=== PATIENT | female | born 1960 | race Caucasian/White ===

== ENCOUNTER → 2019-03-16 | Day surgery (SDC) | payer OTHER ==
[2019-03-14 12:36] LABS: BASOPHILS # (AUTO) 0.1 (0.0-0.1); BASOPHILS % 0.8 % (0.0-1.0); EOSINOPHILS # (AUTO) 0.2 (0.0-0.4); EOSINOPHILS % 3.3 % (0.0-6.0); HEMATOCRIT 36.2 % (34.2-44.1); HEMOGLOBIN 11.2 g/dL (12.0-16.0); LYMPHOCYTES # (AUTO) 2.8 (1.0-3.2); LYMPHOCYTES % 44.3 % (18.0-39.1); MEAN CORPUSCULAR HEMOGLOBIN 27.8 pg (28-32); MEAN CORPUSCULAR HGB CONC 30.9 g/dL (31-35); MEAN CORPUSCULAR VOLUME 89.8 fL (81-99); MONOCYTES # (AUTO) 0.8 (0.2-0.8); MONOCYTES % 13.1 % (4.4-11.3); NEUTROPHILS # (AUTO) 2.4 (2.1-6.9); NEUTROPHILS % 38.3 % (38.7-80.0); PLATELET COUNT 274 x10e3/uL (140-360); RED BLOOD COUNT 4.03 x10e6/uL (3.6-5.1); RED CELL DISTRIBUTION WIDTH 13.9 % (11.7-14.4)
[2019-03-14 12:39] LABS: INR 0.93; PARTIAL THROMBOPLASTIN TIME 33.7 seconds (23.8-35.5)
[~2019-03-16] MED LIST: BREO PO; FENTANYL CITRATE/PF 100MCG/2 ML INJ ONE; HYOSCYAMINE 0.125 MG TAB ONE; LIDOCAINE HCL 2% LOCAL INJ 5 ML SDV VIAL INJ ONE; PROMETHAZINE HCL (IM) 25 MG/ML VIAL ONE; PROPOFOL IV EMULSION 10 MG/ML 50 ML VIAL ONE
--- OUTSIDE RECORDS SUMMARY | 2019-03-16 13:04 | XMS REPORT ---
Author Author [facility] Address Unknown Phone Unavailable Care Team Providers Care Positive Printer Operator Name Role Phone Unavailable Unavailable Payers Payer Name Policy Type Policy Number Effective Date Expiration Date Problems This patient has no known problems. Allergies, Adverse Reactions, Alerts Allergy Name Allergy Type Status Severity Reaction(s) Onset Date Inactive Date Treating Clinician Comments No Known Allergies DA Active U 2018-07-24 00:00:00 Medications This patient has no known medications.
--- OUTSIDE RECORDS SUMMARY | 2019-03-16 13:04 | XMS REPORT | Clinical Summary ---
Author Author [facility] Address Unknown Phone Unavailable Care Team Providers Care Superintendent Marine Name Role Phone Juan Zhou MD PCP Allergies Not on File Medications Not on file Active Problems Not on file Encounters Care Team Description Date Type Specialty Juan Zhou MD Asymptomatic menopausal state (Primary Dx) 02/23/2019 Transcribe Access Orders Real Sherman MD Gastroesophageal reflux disease, esophagitis presence not specified 05/22/2018 Hospital Radiology Encounter Real Sherman MD Gastroesophageal reflux disease, esophagitis presence not specified (Primary Dx) 05/15/2018 Transcribe Access Orders after 03/15/2018 Social History Date Tobacco Use Types Packs/Day Years Used Never Assessed Sex Assigned at Date Recorded Not on file Industry Job Start Date Occupation Not on file Not on file Not on file Travel End Travel History Travel Start No recent travel history available. Last Filed Vital Signs Not on file Plan of Treatment Health Maintenance Due Date Last Done Comments BREAST CANCER SCREENING 2011 COLONOSCOPY SCREENING 2011 SHINGLES VACCINES (#1) 2011 INFLUENZA VACCINE 03/08/2019 Procedures Comments Procedure Name Priority Date/Time Associated Diagnosis BONE DENSITY Routine 03/01/2019 Asymptomatic menopausal 8:52 AM CDT state [place] MODIFIED BARIUM Routine 05/22/2018 Gastroesophageal reflux SWALLOW 1:56 PM CDT disease, esophagitis presence not specified after 03/15/2018 Results * Bone Density (03/01/2019 8:52 AM CDT) Specimen Narrative Performed At EXAMINATION:BONE DENSITY [facility] CLINICAL HISTORY:Z78.0 Asymptomatic menopausal state, ASYMPTOMATIC MENOPAUSAL STATE COMPARISON:None. The results of this study expressed as bone mineral density (BMD) were as follows: AP spine (L1-L4) BMD: 0.810 g/cm2 T-Score: -3.1 Z-Score: -1.8 Percent change: No prior exam. % Left Femur (Total): BMD: 0.738 g/cm2 T-Score: -2.1 Z-Score:-1.2 Percent change: No prior exam. % Left Femur (neck): BMD: 0.714 g/cm2 T-Score: -2.3 Z-Score:-1.0 Percent change: No prior exam. % Right Femur (Total): BMD: 0.690 g/cm2 T-Score: -2.5 Z-Score:-1.6 Percent change: No prior exam. % Right Femur (neck): BMD: 0.667 g/cm2 T-Score: -2.7 Z-Score:-1.4 Percent change: No prior exam. % Total Femur (mean): BMD: 0.714 g/cm2 T-Score: -2.3 Z-Score:-1.4 Percent change: No prior exam. % Femur FRAX: Risk factors: Family history (parent hip fracture) 10 year probability of fracture: 1.Major osteoporotic: 20.9% 2.Hip:2.6% 3.Based on femur right neck BMD Impression: 1.Bone mineral density values as above. Bone mineral density is considered osteoporotic Notes: *The world health organization (WHO) has classified the patient's T-score as follows: At or above (-1) as normal (-1) to (-2.5) as low (osteopenia) At or below (-2.5) as abnormally low (osteoporosis, increased fracture risk) For premenopausal women, men under the age 50 years, and children the WHO classification does not apply. In these individuals please assess bone mineral density with Z scores for each skeletal site examined. Z scores above -2.0: Within expected range for age. Z scores lower than -2.0:Low bone density for age. The TBS is derived from the texture of the DEXA image and has been shown to be related to bone microarchitecture and fracture risk. This data provides information independent of BMD value; is used as a complement to the data obtained from the DEXA analysis and the clinical examination. The TBS can assist the healthcare professional in assessment of fracture risk and in monitoring the effect of treatments on patient over time. Procedure Note Hm Interface, Radiology Results Incoming - 03/01/2019 10:17 AM CDT EXAMINATION: BONE DENSITY CLINICAL HISTORY: Z78.0 Asymptomatic menopausal state, ASYMPTOMATIC MENOPAUSAL STATE COMPARISON: None. The results of this study expressed as bone mineral density (BMD) were as follows: AP spine (L1-L4) BMD: 0.810 g/cm2 T-Score: -3.1 Z-Score: -1.8 Percent change: No prior exam. % Left Femur (Total): BMD: 0.738 g/cm2 T-Score: -2.1 Z-Score: -1.2 Percent change: No prior exam. % Left Femur (neck): BMD: 0.714 g/cm2 T-Score: -2.3 Z-Score: -1.0 Percent change: No prior exam. % Right Femur (Total): BMD: 0.690 g/cm2 T-Score: -2.5 Z-Score: -1.6 Percent change: No prior exam. % Right Femur (neck): BMD: 0.667 g/cm2 T-Score: -2.7 Z-Score: -1.4 Percent change: No prior exam. % Total Femur (mean): BMD: 0.714 g/cm2 T-Score: -2.3 Z-Score: -1.4 Percent change: No prior exam. % Femur FRAX: Risk factors: Family history (parent hip fracture) 10 year probability of fracture: 1. Major osteoporotic: 20.9% 2. Hip:2.6% 3. Based on femur right neck BMD Impression: 1. Bone mineral density values as above. Bone mineral density is considered osteoporotic Notes: *The world health organization (WHO) has classified the patient's T-score as follows: At or above (-1) as normal (-1) to (-2.5) as low (osteopenia) At or below (-2.5) as abnormally low (osteoporosis, increased fracture risk) For premenopausal women, men under the age 50 years, and children the WHO classification does not apply. In these individuals please assess bone mineral density with Z scores for each skeletal site examined. Z scores above -2.0: Within expected range for age. Z scores lower than -2.0: Low bone density for age. The TBS is derived from the texture of the DEXA image and has been shown to be related to bone microarchitecture and fracture risk. This data provides information independent of BMD value; is used as a complement to the data obtained from the DEXA analysis and the clinical examination. The TBS can assist the healthcare professional in assessment of fracture risk and in monitoring the effect of treatments on patient over time. Performing Organization Address [facility] Phone Number [facility] [address] [place] [address] * [place] Modified Barium Swallow (05/22/2018 1:56 PM CDT) Specimen Narrative Performed At EXAMINATION:FL MODIFIED BARIUM SWALLOW RADIREECE CLINICAL HISTORY:K21.9 Gastro-esophageal reflux disease without esophagitis, K21.9 COMPARISON:None. Fluoroscopy time: 0.9 minute. Radiation dose: 2.86 mGy. Total images: 2. FINDINGS: The patient swallowed varying consistencies of barium under direct lateral fluoroscopic evaluation. The study was performed in conjunction with speech pathology. IMPRESSION: Normal study. The patient swallowed each consistency without evidence of laryngeal penetration or aspiration. Please refer to Speech Pathology report for further details. [id number] Procedure Note Hm Interface, Radiology Results Incoming - 05/22/2018 4:03 PM CDT EXAMINATION: FL MODIFIED BARIUM SWALLOW CLINICAL HISTORY: K21.9 Gastro-esophageal reflux disease without esophagitis, K21.9 COMPARISON: None. Fluoroscopy time: 0.9 minute. Radiation dose: 2.86 mGy. Total images: 2. FINDINGS: The patient swallowed varying consistencies of barium under direct lateral fluoroscopic evaluation. The study was performed in conjunction with speech pathology. IMPRESSION: Normal study. The patient swallowed each consistency without evidence of laryngeal penetration or aspiration. Please refer to Speech Pathology report for further details. [id number] Performing Organization Address [facility] Phone Number [facility] [address] [place] [address] after 03/15/2018 Insurance Type Payer Benefit Subscriber ID Effective Phone Address Plan / Dates Group HMO AETNA AETNA xxxxxxxxxx [id number] HMO,POS,EP resent O, MC/EC Advance Directives Patient has advance care planning documents on file. For more information, danelle betancourt contact: Royer Horvath [address] [place] [address]
--- NOTE | 2019-03-16 17:48 | Operative Report ---
DATE OF PROCEDURE: 03/16/2019 SURGEON: Dwayne Beltran MD PROCEDURE: Colonoscopy with polypectomy. INDICATIONS FOR COLONOSCOPY: Surveillance colonoscopy, personal history of colon polyps, rectal bleeding. MEDICATIONS: The patient was done under MAC, please see anesthesiologist's note. PROCEDURE IN DETAIL: With the patient in left lateral decubitus position, the flexible fiberoptic Olympus colonoscope was inserted into the rectum with ease and advanced all the way to the cecum. It was then withdrawn slowly. Mucosa overlying the cecum and ascending colon appeared to be within normal limits. One polyp was snared from the hepatic flexure and site was hemoclipped. The transverse colon appeared to be within normal limits. One polyp was hot biopsied from the descending colon. Two polyps were hot biopsied from the sigmoid. The rectum grossly appeared to be within normal limits. The scope was then retroflexed into the distal rectum and moderate-sized internal hemorrhoids were noted, none of which was actively bleeding. The scope was then straightened out and was subsequently withdrawn. The patient tolerated procedure well. IMPRESSION: 1. Hepatic flexure polyp was removed per snare electrocautery and site hemoclipped. 2. Descending colon polyp, hot biopsied. 3. Sigmoid colon polyps x2, hot biopsied. 4. Internal hemorrhoids, none actively bleeding. PLAN: Follow up histology. Initiate Anucort suppositories b.i.d. x10 days then p.r.n., high-fiber low-fat diet. High-fiber supplement. The patient might benefit from a followup colonoscopy in 3 to 5 years. Dwayne Beltran MD [facility] /[id number] cc: Juan Zhou
[2019-03-16 18:00] VITALS: BP 109/74
== END | disposition home or self-care (01) ==
LOC: OR 13:01
PROVIDERS: ATTEND Internal Medicine Gastroenterology
DX: K62.5 Hemorrhage of anus and rectum (principal); D12.3 Benign neoplasm of transverse colon; K64.8 Other hemorrhoids; D66 Hereditary factor VIII deficiency; J44.9 Chronic obstructive pulmonary disease, unspecified; Z01.812 Encounter for preprocedural laboratory examination
CPT/HCPCS: 36415; 45384; 45385; 85025; 85610; 85730; J2001; J2550; J2704; J3010; 44391